=== PATIENT | female | born 1990 | race American Indian/Alaskan Native ===

== ENCOUNTER 2017-11-05 17:17 | Emergency (ER) | payer OTHER ==
--- NOTE | 2017-11-05 18:51 | RAD ---
HISTORY: COMPARISON: No prior. TECHNIQUE: Chest PA and lateral FINDINGS: LINES AND TUBES: None. LUNG AND PLEURA: The lungs are well inflated and clear. No pleural effusion or pneumothorax. A lobular opacity in the left lower lobe likely corresponds to nipple shadow. HEART AND MEDIASTINUM: The heart is not enlarged. The hilar and mediastinal contours are within normal limits. SKELETAL STRUCTURES: The bony structures are within normal limits for the patient's age. VISUALIZED UPPER ABDOMEN: Normal. OTHER FINDINGS: None. IMPRESSION: No acute findings.
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
[2017-11-05 20:24] VITALS: BP 127/83; PULSE 86; RESP 18; TEMP 97.8
[2017-11-05 21:39] VITALS: O2SAT 100
== END 2017-11-05 20:24 | disposition home or self-care (01) ==
LOC: C.ER 17:17
DX: S20.219A Contusion of unspecified front wall of thorax, initial encounter (principal); S16.1XXA Strain of muscle, fascia and tendon at neck level, initial encounter; S09.90XA Unspecified injury of head, initial encounter; V49.9XXA Car occupant (driver) (passenger) injured in unspecified traffic accident, initial encounter